=== PATIENT | male | born 2005 | race African-American/Black ===

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

== ENCOUNTER 2025-09-13 00:21 | Emergency (ER) | payer MEDICAID, OTHER ==
[~2025-09-13] VITALS: Ht 175.3 cm; Wt 58.7 kg
[~2025-09-13 00:21] MED LIST: ACET-2708 MT; IBUP-2028 MT; LIDO1ADH23 TP; MORP15TA67 MT
[2025-09-13 00:27] VITALS: O2SAT 98
[2025-09-13 00:54] VITALS: BP 110/76; TEMP 36.8
[2025-09-13] MEDS: DEXAMETHASONE 10 MG/ML VIAL PO ONE (02:55)
[2025-09-13 03:10] VITALS: PULSE 63; RESP 20; O2SAT 100
[2025-09-13] MEDS: IPRATROPIUM/ALBUTEROL 0.5-3(2.5)MG/3ML NEB HHN ONE (03:10)
[2025-09-13] MEDS ORDERED: PRED5TAB48 MT (03:40)
[2025-09-13] MEDS ORDERED: ALBU18HF2 IH (03:40)
== END 2025-09-13 04:08 | disposition home or self-care (01) ==
LOC: ER 00:21
DX: J45.901 Unspecified asthma with (acute) exacerbation (principal); R06.02 Shortness of breath; Z79.52 Long term (current) use of systemic steroids
CPT/HCPCS: 71045; 94640; 93005; 98960; 99283; J1100; Z7610 ×3; 94070; 94664